=== PATIENT | male | born 1995 | race Two or more races ===

== ENCOUNTER 2017-12-10 13:29 | Emergency (ER) | payer SELFPAY ==
[~2017-12-10] VITALS: Ht 167.6 cm; Wt 63.5 kg
--- NOTE | 2017-12-10 14:09 | PHYS DOC ---
Adult General Chief Complaint Chief Complaint: SEXUALLY TRANSMITTED DISEASE HPI HPI Patient is a 22 year old male presented ER today for evaluation of burning with urination patient said his girlfriend was tested positive for chlamydia couple days ago, he wanted to be treated for STD. He denies any penile discharge, however he said whenever he urinated it was burning. Patient denies any fever, no nausea, no vomiting, no abdominal pain. Review of Systems Review of Systems Constitutional: Denies fever or chills [] Eyes: Denies change in visual acuity, redness, or eye pain [] HENT: Denies nasal congestion or sore throat [] Respiratory: Denies cough or shortness of breath [] Cardiovascular: No additional information not addressed in HPI [] GI: Denies abdominal pain, nausea, vomiting, bloody stools or diarrhea [] : positive for burning with urination, no penile discharge. Musculoskeletal: Denies back pain or joint pain [] Integument: Denies rash or skin lesions [] Neurologic: Denies headache, focal weakness or sensory changes [] Endocrine: Denies polyuria or polydipsia [] All other systems were reviewed and found to be within normal limits, except as documented in this note. Current Medications Current Medications Current Medications Medications (Trade) Dose Ordered Sig/Liu Start Time Stop Time Status Last Admin Dose Admin Azithromycin (Zithromax) 1,000 mg 1X ONCE 12/10/17 14:15 12/10/17 14:16 DC 12/10/17 14:23 1,000 MG Ceftriaxone Sodium (Rocephin Im) 250 mg 1X ONCE 12/10/17 14:15 12/10/17 14:16 DC 12/10/17 14:22 250 MG Allergies Allergies Allergies Coded Allergies Type Severity Reaction Last Updated Verified No Known Drug Allergies 12/10/17 No Physical Exam Physical Exam Constitutional: Well developed, well nourished, no acute distress, non-toxic appearance. [] HENT: Normocephalic, atraumatic, bilateral external ears normal, oropharynx moist, no oral exudates, nose normal. [] Eyes: PERRLA, EOMI, conjunctiva normal, no discharge. [] Neck: Normal range of motion, no tenderness, supple, no stridor. [] Cardiovascular:Heart rate regular rhythm, no murmur [] Lungs & Thorax: Bilateral breath sounds clear to auscultation [] Abdomen: Bowel sounds normal, soft, no tenderness, no masses, no pulsatile masses. Patient declined male exame. Skin: Warm, dry, no erythema, no rash. [] Back: No tenderness, no CVA tenderness. [] Extremities: No tenderness, no cyanosis, no clubbing, ROM intact, no edema. [] Neurologic: Alert and oriented X 3, normal motor function, normal sensory function, no focal deficits noted. [] Psychologic: Affect normal, judgement normal, mood normal. [] Current Patient Data Vital Signs Vital Signs Date Time Temp Pulse Resp B/P (MAP) Pulse Ox O2 Delivery O2 Flow Rate FiO2 12/10/17 14:14 98.7 64 16 126/69 (88) 99 Room Air 98.7 EKG EKG [] Radiology/Procedures Radiology/Procedures [] Course & Med Decision Making Course & Med Decision Making Pertinent Labs and Imaging studies reviewed. (See chart for details) Patient was given 250 mg of Rocephin IM, 1 g of Zithromax by mouth in the ER. Sexual transmitted disease information was given to him. Dragon Disclaimer Dragon Disclaimer This electronic medical record was generated, in whole or in part, using a voice recognition dictation system. Departure Departure Impression: Primary Impression: Urethritis Additional Impression: STD (male) Disposition: 01 HOME, SELF-CARE Condition: STABLE Patient Instructions: Sexuality and Disability, Urethritis, Adult Additional Instructions: No sexual intercourse with your partner until you and your partner both treated. Problem Qualifiers HAMILTON RAGSDALE DO Dec 10, 2017 14:09
[2017-12-10 14:14] VITALS: BP 126/69
[2017-12-10] MEDS: cefTRIAXone IM 250 MG VIAL IM ONE (14:22)
[2017-12-10] MEDS: AZITHROMYCIN 250 MG TABLET. PO ONE (14:23)
== END 2017-12-10 14:41 | disposition home or self-care (01) ==
LOC: ER 13:29
DX: A63.8 Other specified predominantly sexually transmitted diseases (principal); N34.2 Other urethritis
CPT/HCPCS: 96372; 99283; J0696; Q0144

== ENCOUNTER 2018-02-04 22:49 | Emergency (ER) | payer SELFPAY ==
[~2018-02-04] VITALS: Ht 175.3 cm; Wt 63.5 kg
[2018-02-04 23:10] VITALS: BP 126/82
[2018-02-04 23:18] LABS: BILIRUBIN,URINE NEGATIVE (NEG); CLARITY,URINE CLOUDY; COLOR,URINE YELLOW; NITRITE,URINE NEGATIVE (NEG); PROTEIN,URINE 30 mg/dL (NEG-TRACE); UROBILINOGEN,URINE 0.2 mg/dL (0.2 mg/dL)
--- NOTE | 2018-02-04 23:19 | PHYS DOC ---
Past Medical History Past Medical History: No Pertinent History Past Surgical History: No Surgical History Alcohol Use: None Drug Use: None Adult General Chief Complaint Chief Complaint: PAIN ON URINATION HPI HPI Patient is a 22 year old male with history of STDs of presents today complaining of penile discharge that began today. Patient states his had unprotected sex with multiple partners and is concerned he has an STD again. Review of Systems Review of Systems Constitutional: Denies fever or chills [] : Reports penile discharge. Denies dysuria or hematuria [] Musculoskeletal: Denies back pain or joint pain [] Integument: Denies rash or skin lesions [] Neurologic: Denies headache, focal weakness or sensory changes [] All other systems were reviewed and found to be within normal limits, except as documented in this note. Allergies Allergies Allergies Coded Allergies Type Severity Reaction Last Updated Verified No Known Drug Allergies 12/10/17 No Physical Exam Physical Exam Constitutional: Well developed, well nourished, no acute distress, non-toxic appearance. [] Abdomen: Bowel sounds normal, soft, no tenderness, no masses, no pulsatile masses. [] Male exam:deferred per patient request. Skin: Warm, dry, no erythema, no rash. [] Back: No tenderness, no CVA tenderness. [] Extremities: No tenderness, no cyanosis, no clubbing, ROM intact, no edema. [] Neurologic: Alert and oriented X 3, normal motor function, normal sensory function, no focal deficits noted. [] Psychologic: Affect normal, judgement normal, mood normal. [] EKG EKG [] Radiology/Procedures Radiology/Procedures [] Course & Med Decision Making Course & Med Decision Making Pertinent Labs and Imaging studies reviewed. (See chart for details) This is a 22-year-old male patient with history of STDs presenting today complaining of nose discharge since this morning, has had unprotected sex with multiple partners. Patient was treated prophylaxis. Provided STD education again. Dragon Disclaimer Dragon Disclaimer This electronic medical record was generated, in whole or in part, using a voice recognition dictation system. Departure Departure Impression: Primary Impression: Concern about STD in male without diagnosis Disposition: 01 HOME, SELF-CARE Condition: STABLE Referrals: NO PCP (PCP) Follow-up with the health department for further STD concerns Patient Instructions: Sexually Transmitted Disease, [id number] Additional Instructions: You were treated in the emergency room for sexually transmitted diseases. Use protection at all times. Contact all your sex partners, let them know you were treated for STDs and ask them to seek treatment too. Please follow-up with the health department for further STD concerns. JOE BLANCO APRN Feb 04, 2018 23:19
[2018-02-04 23:27] LABS: BACTERIA,URINE FEW /HPF (0-FEW); WBC,URINE >40 /HPF (0-4)
[2018-02-04] MEDS ORDERED: metroNIDAZOLE 500 MG TABLET PO ONE (23:30)
[2018-02-04] MEDS ORDERED: cefTRIAXone IM 250 MG VIAL IM ONE (23:30)
[2018-02-04] MEDS ORDERED: AZITHROMYCIN 250 MG TABLET. PO ONE (23:30)
== END 2018-02-04 23:35 | disposition home or self-care (01) ==
LOC: ER 22:49
DX: R36.9 Urethral discharge, unspecified (principal)
CPT/HCPCS: 81001; 87491; 87591; 96372; 99283; J0696; Q0144

== ENCOUNTER 2018-09-19 06:21 | Emergency (ER) | payer SELFPAY ==
[~2018-09-19] VITALS: Ht 170.2 cm; Wt 63.5 kg
[2018-09-19 07:42] VITALS: BP 124/75
[2018-09-19] MEDS ORDERED: HYDR-3164 PO (07:56)
[2018-09-19] MEDS ORDERED: AMOX500C PO (07:56)
[2018-09-19] MEDS ORDERED: IBUP-1060 PO (07:56)
--- NOTE | 2018-09-19 07:57 | PHYS DOC ---
Past Medical History Past Medical History: STD Past Surgical History: No Surgical History Alcohol Use: None Drug Use: Marijuana Adult General Chief Complaint Chief Complaint: EARACHE/EAR PAIN HPI HPI Patient is a 22 year old male who presents with complaining of left earache. Patient complaining of sudden onset of left earache about 2 hours ago as a constant pressure pain without it discharge, fever and chills, recent URI symptom or swimming. Review of Systems Review of Systems Constitutional: Denies fever or chills [] Eyes: Denies change in visual acuity, redness, or eye pain [] HENT: Denies nasal congestion or sore throat, reports ear pain Respiratory: Denies cough or shortness of breath [] Cardiovascular: No additional information not addressed in HPI [] GI: Denies abdominal pain, nausea, vomiting, bloody stools or diarrhea [] : Denies dysuria or hematuria [] Musculoskeletal: Denies back pain or joint pain [] Integument: Denies rash or skin lesions [] Neurologic: Denies headache, focal weakness or sensory changes [] Endocrine: Denies polyuria or polydipsia [] All other systems were reviewed and found to be within normal limits, except as documented in this note. Current Medications Current Medications Current Medications Medications (Trade) Dose Ordered Sig/Liu Start Time Stop Time Status Last Admin Dose Admin Ibuprofen (Motrin) 800 mg 1X ONCE 09/19/18 08:00 09/19/18 08:01 DC 09/19/18 08:06 800 MG Allergies Allergies Allergies Coded Allergies Type Severity Reaction Last Updated Verified No Known Drug Allergies 12/10/17 No Physical Exam Physical Exam Constitutional: Well developed, well nourished, mild distress, non-toxic appe arance. [] HENT: Normocephalic, atraumatic, right tympanic membrane normal, left tympanic membrane with erythema and bulging without perforation or discharge, oropharynx moist, no oral exudates, nose normal. [] Eyes: PERRLA, EOMI, conjunctiva normal, no discharge. [] Neck: Normal range of motion, no tenderness, supple, no stridor. [] Cardiovascular:Heart rate regular rhythm, no murmur [] Lungs & Thorax: Bilateral breath sounds clear to auscultation [] Neurologic: Alert and oriented X 3, normal motor function, normal sensory function, no focal deficits noted. [] Psychologic: Affect normal, judgement normal, mood normal. [] Current Patient Data Vital Signs Vital Signs Date Time Temp Pulse Resp B/P (MAP) Pulse Ox O2 Delivery O2 Flow Rate FiO2 09/19/18 07:42 97.9 72 16 124/75 (91) 96 Room Air 97.9 EKG EKG [] Radiology/Procedures Radiology/Procedures [] Course & Med Decision Making Course & Med Decision Making Evaluation of patient showed 22-year-old male patient with complaining of left ear pain. Patient had left tympanic membrane erythema and edema and treated with ibuprofen in ER and prescription for ibuprofen and amoxicillin and [place] was given. Dragon Disclaimer Dragon Disclaimer This electronic medical record was generated, in whole or in part, using a voice recognition dictation system. Departure Departure Impression: Primary Impression: Left otitis media Disposition: HOME, SELF-CARE (at 0800) Condition: STABLE Referrals: NO PCP (PCP) Patient Instructions: Otitis Media, Adult Additional Instructions: Drink plenty of liquids Follow-up with your primary care physician in 3-5 days Return to ER if not getting better Scripts Hydrocodone/Apap 5-325 (NORCO 5-325 TABLET) 1 Each Tablet 1 TAB PO PRN Q6HRS PRN for PAIN, #10 TAB 0 Refills Prov: CHRISTINA VELARDE MD 09/19/18 Ibuprofen (IBUPROFEN) 800 Mg Tablet 800 MG PO PRN Q8HRS PRN for INFLAMMATION, #20 TAB Prov: CHRISTINA VELARDE MD 09/19/18 Amoxicillin (AMOXICILLIN) 500 Mg Capsule 1 CAP PO Q8HRS for infection, #30 CAP Prov: CHRISTINA VELARDE MD 09/19/18 Problem Qualifiers Primary Impression: Left otitis media Otitis media type: unspecified Qualified Codes: H66.92 - Otitis media, unspecified, left ear CHRISTINA VELARDE MD Sep 19, 2018 07:56
[2018-09-19] MEDS ORDERED: IBUPROFEN 400 MG TABLET. PO ONE (08:00)
== END 2018-09-19 08:10 | disposition home or self-care (01) ==
LOC: ER 06:21
DX: H66.92 Otitis media, unspecified, left ear (principal)
CPT/HCPCS: 99283

== ENCOUNTER 2019-11-13 16:47 | Emergency (ER) | payer SELFPAY ==
[~2019-11-13] VITALS: Ht 170.2 cm; Wt 65.9 kg
[~2019-11-13 16:47] MED LIST: AMOX500C PO; HYDR-3164 PO; IBUP-1060 PO
[2019-11-13 19:15] VITALS: BP 124/77
[2019-11-13] MEDS ORDERED: LIDOCAINE 1% Multi-Dose 20 ML VIAL. INJ ONE (19:30)
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
[2019-11-13] MEDS ORDERED: DIPH,PERTUSS(ACELL),TET VAC/PF 0.5 ML SYRINGE. VAX IM ONE (19:45)
--- NOTE | 2019-11-13 21:13 | RAD ---
Study: CR WRIST 3V LEFT Indication: Laceration. Comparison: None. Findings: No acute fracture. Alignment is anatomic. No retained radiopaque foreign body. Impression: No acute osseous abnormality or retained radiodense foreign body. Electronically signed by: EDWARD HENSLEY MD (11/13/2019 9:10 PM) [id number]
== END 2019-11-13 20:35 | disposition home or self-care (01) ==
LOC: ER 16:47
DX: S61.512A Laceration without foreign body of left wrist, initial encounter (principal); F12.90 Cannabis use, unspecified, uncomplicated; W26.0XXA Contact with knife, initial encounter; Y93.89 Activity, other specified; Y92.89 Other specified places as the place of occurrence of the external cause; Y99.8 Other external cause status
CPT/HCPCS: 12002; 73110; 90471; 90715; 99283; J3490

== ENCOUNTER 2020-10-09 20:39 | Emergency (ER) | payer SELFPAY ==
[~2020-10-09] VITALS: Ht 170.2 cm; Wt 81.8 kg
[2020-10-10 02:05] VITALS: BP 122/87
[2020-10-10] MEDS ORDERED: AMOX500C PO (02:41)
--- NOTE | 2020-10-10 02:42 | PHYS DOC ---
Past Medical History Past Medical History: No Pertinent History, STD Past Surgical History: Other Additional Past Surgical Histo: RIGHT KNEE Smoking Status: Never Smoker Alcohol Use: None Drug Use: Marijuana General Adult EDM: Chief Complaint: EARACHE/EAR PAIN HPI: HPI: Patient is a 24 year old male who presents with left-sided earache for the past 3 days. States that this was preceded by sore throat, runny nose, cough. His last tactile fever was approximately 2 to 3 days ago. His other symptoms have been improving. States that he has many previous middle ear infections. States that he gets antibiotics approximately once a year. Denies any long-term medical problems. Has not had a Covid test during this illness. Review of Systems: Review of Systems: Constitutional: Previous fever and chills. [] Eyes: Denies change in visual acuity. [] HENT: + Left ear pain. Improving nasal congestion and sore throat. [] Respiratory: Denies cough or shortness of breath. [] Cardiovascular: Denies chest pain or edema. [] GI: Denies abdominal pain, nausea, vomiting, bloody stools or diarrhea. [] : Denies dysuria. [] Musculoskeletal: Denies back pain or joint pain. [] Integument: Denies rash. [] Neurologic: Denies headache, focal weakness or sensory changes. [] Endocrine: Denies polyuria or polydipsia. [] Lymphatic: Denies swollen glands. [] Psychiatric: Denies depression or anxiety. [] Heart Score: C/O Chest Pain: No Risk Factors: Risk Factors: DM, Current or recent (<one month) smoker, HTN, HLP, family history of CAD, obesity. Risk Scores: Score 0 - 3: 2.5% MACE over next 6 weeks - Discharge Home Score 4 - 6: 20.3% MACE over next 6 weeks - Admit for Clinical Observation Score 7 - 10: 72.7% MACE over next 6 weeks - Early Invasive Strategies Allergies: Allergies: Allergies Coded Allergies Type Severity Reaction Last Updated Verified No Known Drug Allergies 12/10/17 No Physical Exam: PE: Constitutional: Well developed, well nourished, no acute distress, non-toxic appearance. [] HENT: Normocephalic, atraumatic, right TM normal. External auditory canals normal bilaterally. Left TM slightly injected and bulging. Partially obscured by cerumen.. [] Eyes: PERRLA, EOMI, conjunctiva normal, no discharge. [] Neck: Normal range of motion, no tenderness, supple, no stridor. [] Cardiovascular:Heart rate regular rhythm, no murmur [] Lungs & Thorax: Bilateral breath sounds clear to auscultation [] Abdomen: Bowel sounds normal, soft, no tenderness, no masses, no pulsatile masses. [] Skin: Warm, dry, no erythema, no rash. [] Back: No tenderness, no CVA tenderness. [] Extremities: No tenderness, no cyanosis, no clubbing, ROM intact, no edema. [] Neurologic: Alert and oriented X 3, normal motor function, normal sensory function, no focal deficits noted. [] Psychologic: Affect normal, judgement normal, mood normal. [] Current Patient Data: Vital Signs: Vital Signs Date Time Temp Pulse Resp B/P (MAP) Pulse Ox O2 Delivery O2 Flow Rate FiO2 10/10/20 02:05 98.2 71 122/87 (93) 99 Room Air 98.2 EKG: EKG: [] Radiology/Procedures: Radiology/Procedures: [] Course & Med Decision Making: Course & Med Decision Making Pertinent Labs and Imaging studies reviewed. (See chart for details) Patient a 24-year-old male with left-sided ear pain following a viral URI prodrome. States that he has had many previous ear infections and this feels similar. Exam concerning for AOM. Will give amoxicillin. Will check for Covid. Vitally stable. Safe for discharge at this time. Min Disclaimer: Min Disclaimer: This electronic medical record was generated, in whole or in part, using a voice recognition dictation system. Departure Departure Impression: Primary Impression: Left acute otitis media Additional Impression: Viral URI Disposition: HOME / SELF CARE / HOMELESS Condition: STABLE Referrals: NO PCP (PCP) Additional Instructions: Please take antibiotics as prescribed. Your Covid test is pending. We will call you if your result is positive. If it is positive, you will need to self isolate for at least 10 days since symptom onset, and at least 3 days since you were fevers have been gone on your symptoms are improving. Please isolate until you know your results. Scripts Amoxicillin (AMOXICILLIN) 500 Mg Capsule 2 CAP PO BID for infection for 7 Days, #28 CAP Prov: RJ MCCORMICK MD 10/10/20 JR MCCORMICK MD Oct 10, 2020 02:42
--- NOTE | 2020-10-10 18:29 | NUR ---
IP: Informed pt of negative covid test. Pt verbalized understanding.
== END 2020-10-10 03:00 | disposition home or self-care (01) ==
LOC: ER 20:39
DX: H66.92 Otitis media, unspecified, left ear (principal); Z20.822 Contact with and (suspected) exposure to COVID-19; J06.9 Acute upper respiratory infection, unspecified
CPT/HCPCS: 99283; U0003; U0005